=== PATIENT | female | born 1975 | race Caucasian/White ===

== ENCOUNTER 2018-05-06 08:53 | Emergency (ER) | payer MEDICAID ==
[~2018-05-06] VITALS: Ht 167.6 cm; Wt 82.5 kg
[~2018-05-06 08:53] MED LIST: ACET325T14 PO
[2018-05-06] MEDS ORDERED: KETOROLAC 30 MG/1 ML ONE (09:35)
[2018-05-06] MEDS ORDERED: KETOROLAC 30 MG/1 ML IM ONE (10:00)
[2018-05-06 10:15] VITALS: BP 134/84
== END 2018-05-06 10:37 | disposition home or self-care (01) ==
LOC: ED 09:37
DX: S20.212A Contusion of left front wall of thorax, initial encounter (principal); X58.XXXA Exposure to other specified factors, initial encounter; Y93.89 Activity, other specified; Y99.8 Other external cause status; Y92.009 Unspecified place in unspecified non-institutional (private) residence as the place of occurrence of the external cause
CPT/HCPCS: 71046; 96372; 99284; J1885

== ENCOUNTER 2019-04-20 13:48 | Emergency (ER) | payer MEDICAID ==
[~2019-04-20] VITALS: Ht 167.6 cm; Wt 84.0 kg
[2019-04-20 13:52] VITALS: BP 168/96
== END 2019-04-20 15:46 | disposition home or self-care (01) ==
LOC: ED 15:41
DX: S39.012A Strain of muscle, fascia and tendon of lower back, initial encounter (principal); X58.XXXA Exposure to other specified factors, initial encounter; Y93.89 Activity, other specified; Y92.89 Other specified places as the place of occurrence of the external cause; Y99.8 Other external cause status
CPT/HCPCS: 72110; 96372; 99283; J1885

== ENCOUNTER 2019-07-28 10:50 | Emergency (ER) | payer MEDICAID ==
[~2019-07-28] VITALS: Ht 167.6 cm; Wt 84.8 kg
[~2019-07-28 10:50] MED LIST changes: +IBUP-1223 PO
[2019-07-28 10:53] VITALS: BP 150/91
[2019-07-28] MEDS ORDERED: IBUPROFEN 600 MG TABLET ONE (11:25)
[2019-07-28] MEDS ORDERED: IBUPROFEN 600 MG TABLET PO ONE (11:30)
--- NOTE | 2019-07-28 12:14 | NUR ---
MICHAEL CARTER NOT IN ED SUPPLY ROOM, [facility] CALLED AND NOTIFIED TO SEND.
--- NOTE | 2019-07-28 13:05 | NUR ---
PT GIVEN FITTED CRUTCHES WITH EDUCATION, ROCKER SHOE PLACED TO RT FOOT. PT GIVEN DC INSTRUCTIONS, DEMONSTRATES APPROPRIATE USE OF CRUTCHES. PT AMB TO DC DESK WITH CRUTCH GAIT, NADN AT DC.
== END 2019-07-28 13:06 | disposition home or self-care (01) ==
LOC: ED 12:50
DX: S92.214A Nondisplaced fracture of cuboid bone of right foot, initial encounter for closed fracture (principal); W01.0XXA Fall on same level from slipping, tripping and stumbling without subsequent striking against object, initial encounter; Y93.89 Activity, other specified; Y92.89 Other specified places as the place of occurrence of the external cause; Y99.8 Other external cause status
CPT/HCPCS: 99283

== ENCOUNTER 2019-10-19 17:44 | Emergency (ER) | payer OTHER, MEDICAID ==
[~2019-10-19] VITALS: Ht 167.6 cm; Wt 80.0 kg
--- NOTE | 2019-10-19 18:11 | NUR ---
SAHM IN ROOM PLAN FOR RAD.
--- NOTE | 2019-10-19 18:36 | NUR ---
Rad awaiting CT Clearance to perform exams
--- NOTE | 2019-10-19 19:11 | NUR ---
PT TO RAD. VSS.
[2019-10-19 19:32] VITALS: BP 166/98
--- NOTE | 2019-10-19 19:33 | NUR ---
MALATHI IN ROOM TO UPDATE. SMALL FACIAL FX R CHEEK. TO F/U OUPT.
--- NOTE | 2019-10-19 19:33 | NUR ---
PT OOB TO BATHROOM GAIT STEADY C COLLAR REMOVED BY MALATHI.
[2019-10-19] MEDS ORDERED: IBUPROFEN 200 MG TABLET ONE (19:51)
[2019-10-19] MEDS ORDERED: IBUPROFEN 200 MG TABLET PO ONE (20:00)
== END 2019-10-19 20:35 | disposition home or self-care (01) ==
LOC: ED 20:25
DX: S02.40CA Maxillary fracture, right side, initial encounter for closed fracture (principal); S33.5XXA Sprain of ligaments of lumbar spine, initial encounter; S09.90XA Unspecified injury of head, initial encounter; S40.011A Contusion of right shoulder, initial encounter; V49.50XA Passenger injured in collision with unspecified motor vehicles in traffic accident, initial encounter; Y93.89 Activity, other specified; Y92.488 Other paved roadways as the place of occurrence of the external cause; Y99.8 Other external cause status
CPT/HCPCS: 70450; 70486; 72110; 72125; 99285